=== PATIENT | female | born 1990 | race Caucasian/White ===

== ENCOUNTER 2018-10-15 00:58 | Emergency (ER) | payer SELFPAY ==
--- NOTE | 2018-10-15 01:14 | PDOC ---
History of Present Illness - General Stated Complaint: ABDOMINAL PAIN Time Seen by Provider: 10/15/18 01:08 History Source: Patient Exam Limitations: No Limitations - History of Present Illness Initial Comments: 10/15/18 01:12 28 YOF who is (LTCSx3) who p/w 10/10 non-radiating abdominal pain since 5 pm, onset while she was at rest and not exerting herself. She has never had pain like this before. Last BM was normal and was 2 hours ago, denies any f/c, diarrhea or constipation, LMP was 09/25/18, denies any chance of being . Notes nausea and headache, but denies any vomiting, SOB, vaginal bleeding or discharge. Did not take any medications for the pain. Past History - Past Medical History Allergies/Adverse Reactions: Allergies Allergy/AdvReac Type Severity Reaction Status Date / Time No Known Allergies Allergy Verified 10/15/18 01:46 Home Medications: Ambulatory Orders Doxycycline Hyclate 100 mg PO BID #28 capsule 10/15/18 Review of Systems - Review of Systems Able to Perform ROS?: Yes Comments:: 10/15/18 01:13 GEN: no fever, chills, malaise, generalized weakness, or weight change HEENT: no ear pain, sore throat, vision change, or eye pain CV: no chest pain, palpitations, lightheadedness, syncope, or edema RESP: no cough, wheezing, or SOB GI: abdominal pain, no nausea, vomiting, diarrhea, constipation, or white/black/ bloody stool : discharge, dysuria, labial mass/pain no hematuria, incontinence, retention, or bleeding MSK: no neck/back pain, muscle weakness/pain, or joint swelling/pain NEURO: no headache, seizure, vertigo, numbness, tingling, or focal weakness PSYCH: no substance use, no behavior change SKIN: no jaundice, no rash ROS otherwise negative except as noted in HPI *Physical Exam - Physical Exam Comments: 10/15/18 01:13 GENERAL: well-appearing, A/Ox4, no distress, answers questions appropriately HEENT: PERRLA, EOMI, moist mucous membranes NECK/BACK: no midline ttp, no spinal stepoff or deformity, no hematoma, full ROM , neck supple CARDIOVASCULAR: regular rate/rhythm, normal S1S2, no MGR, strong peripheral pulses, capillary refill <2 seconds, extremities wwp, no edema LUNGS/RESPIRATORY: no respiratory distress, CTAB GI/ABDOMEN: symmetric [id number], normoactive BS, soft, RLE ttp which is mild , no midline pulsatile masses : no CVA tenderness, pelvic exam with moderate sized left Bartholin cyst, moderate white discharge within vaginal vault, b/l adnexal ttp and CMT EXTREMITIES: no muscle atrophy, no acute deformity SKIN: warm and dry, no pallor, no jaundice, no rash, no bruising, no skin breakdown, no cuts, no lesions NEUROLOGICAL: GCS 15, CN II-XII grossly intact, 5/5 strength proximally and distally, no facial droop ED Treatment Course - LABORATORY CBC & Chemistry Diagram: 10/15/18 03:04 10/15/18 04:21 Medical Decision Making - Medical Decision Making 10/15/18 01:56 28YOF p/w abdominal pain, vaginal pain, and vaginal discharge. Vital Signs 10/15/18 10/15/18 01:05 01:15 Temperature 97.9 F Pulse Rate 66 Respiratory 16 Rate Blood Pressure 00/00 L 108/53 L O2 Sat by Pulse 98 Oximetry (%) Exam: As noted in Physical Exam section. DDX IBNLT: labial abscess, Bartholin cyst, hernia, PID, other vaginal infection , lymphadenopathy, PID, cervicitis, ovarian torsion, ovarian cyst, ectopic , TOA, endometritis, salpingitis, oophoritis, etc. W/U ordered: CBCD CMP Mg Phos Coags T&S UA UCx GC/Chlam/trich NAAT (cervical swab) GC culture, US TX ordered: IVF, Ofirmev 10/15/18 04:14 Type and screen and CMP hemolyzed and re-ordered. Laboratory Tests 10/15/18 10/15/18 10/15/18 03:04 03:04 03:04 WBC 13.8 H RBC 4.06 Hgb 12.8 Hct 38.4 MCV 94.7 MCH 31.5 MCHC 33.3 RDW 14.3 Plt Count 303 MPV 8.7 Absolute Neuts (auto) 10.8 H Neutrophils % 78.1 Lymphocytes % 15.4 Monocytes % 4.9 Eosinophils % 1.3 Basophils % 0.3 Nucleated RBC % 0 Sodium Cancelled Potassium Cancelled Chloride Cancelled Carbon Dioxide Cancelled Anion Gap Cancelled BUN Cancelled Creatinine Cancelled Creat Clearance w eGFR Cancelled Random Glucose Cancelled Calcium Cancelled Total Bilirubin Cancelled AST Cancelled ALT Cancelled Alkaline Phosphatase Cancelled Total Protein Cancelled Albumin Cancelled Serum , Qual Negative Blood Type Antibody Screen 10/15/18 10/15/18 10/15/18 03:04 04:21 04:21 WBC RBC Hgb Hct MCV MCH MCHC RDW Plt Count MPV Absolute Neuts (auto) Neutrophils % Lymphocytes % Monocytes % Eosinophils % Basophils % Nucleated RBC % Sodium 142 Potassium 3.7 Chloride 110 H Carbon Dioxide 25 Anion Gap 7 L BUN 7 Creatinine 0.5 L Creat Clearance w eGFR 145.87 Random Glucose 95 Calcium 7.5 L Total Bilirubin 0.2 AST 18 ALT 16 Alkaline Phosphatase 66 Total Protein 6.0 L Albumin 3.1 L Serum , Qual Blood Type Cancelled O POSITIVE Antibody Screen Cancelled Negative US: CT A/P is ordered and patient is pending this study. Vital Signs Temperature 98.3 F 10/15/18 05:52 Pulse Rate 63 10/15/18 05:52 Respiratory Rate 18 10/15/18 05:52 Blood Pressure 112/72 10/15/18 05:52 O2 Sat by Pulse Oximetry (%) 99 10/15/18 05:52 10/15/18 06:47 [facility] resident Dr. Tinoco pending CT. *DC/Admit/Observation/Transfer Diagnosis at time of Disposition: Abdominal pain Qualifiers: Abdominal location: unspecified location Qualified Code(s): R10.9 - Unspecified abdominal pain - Prescriptions Prescriptions: Doxycycline Hyclate 100 mg PO BID #28 capsule - Referrals Referrals: [facility] [place] [facility] at [place] [Provider Group] - Patient Instructions Additional Instructions: You were seen in the ER for abdominal pain and pelvic pain, with some discharge. We did an exam, laboratory work on your blood and urine, ultrasounds , and a CT scan, we found evidence of a possible infection, and we gave you your first doses of antibiotics here in the ER. Your pain improved with the medications we gave you here in the ER. After our assessment, we believe you are not having a medical emergency and you are safe to go home. Please take over -the-counter pain relievers like naproxen (aleve) or ibuprofen (motrin) or tylenol. 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 Call their clinic [facility], tell them you were seen in the ER, and tell them you need an appointment. Please come back to the ER at any time, 24 hours a day, for any new or worsening symptoms, like worsening pelvic pain, discharge, high fever, or other symptoms. If you are having severe or life threatening symptoms, or symptoms that make it unsafe to drive or have someone drive you, please call 911. - Post Discharge Activity
--- NOTE | 2018-10-15 01:35 | PDOC ---
Attending Attestation - HPI HPI: 10/15/18 01:41 The patient is a 28-year-old female, (delivered via ) presents to the emergency department with abdominal pain. The patient reports the pain presented at 5:00 pm, denies any trauma or injury that precipitated the pain. The patient states the pain is 10/10 in severity, nonradiating or nonpositional. The patient reports associated symptoms of nausea, headache, and dizziness. Denies prior similar symptoms. Last bowel movement was 2 hours ago, LMP was September 25. Denies hx of STD. Denies fever or chills. - Physicial Exam PE: 10/15/18 01:59 GENERAL: Afebril. Awake, alert, and fully oriented, in no acute distress HEAD: No signs of trauma EYES: PERRLA, EOMI, sclera anicteric, conjunctiva clear ENT: Auricles normal inspection, hearing grossly normal, nares patent, oropharynx clear without exudates. Moist mucosa NECK: Normal ROM, supple, no lymphadenopathy, JVD, or masses LUNGS: Breath sounds equal, clear to auscultation bilaterally. No wheezes, and no crackles HEART: Regular rate and rhythm, normal S1 and S2, no murmurs, rubs or gallops ABDOMEN: +RLQ rebound and guarding, periumbilical pain with rebound, no flank pain, Pelvic exam: +large 2.5 cm bartholin cyst on the left labia, nontender, no red or inflamed. Patient states its been present for 5 days. CMT, white discharge inside the vaginal vault, b/l adnexal tenderness. EXTREMITIES: Normal range of motion, no edema. No clubbing or cyanosis. No cords, erythema, or tenderness NEUROLOGICAL: Cranial nerves II through XII grossly intact. Normal speech. SKIN: Warm, Dry, normal turgor, no rashes or lesions noted. - Medical Decision Making 10/15/18 01:41 Documentation prepared by Alysha Sarah, acting as medical accounts receivable specialist for Darline Cordoba MD. <Alysha Sarah - Last Filed: 10/15/18 01:56> - Resident Resident Name: Karen Mclean - ED Attending Attestation I have performed the following: I have examined & evaluated the patient, The case was reviewed & discussed with the resident, I agree w/resident's findings & plan - Medical Decision Making 10/15/18 04:09 Patient Name: TRINI LANCASTER THIS IS A PRELIMINARY REPORT FROM [facility] DATE OF SERVICE: 2018-10-15 02:07:30 IMAGES: 10 EXAM: Ultrasound appendix HISTORY: 28-year-old female evaluate appendix COMPARISON: None. FINDINGS: Appendix is not identified. IMPRESSION: Appendix is not identified. Cannot exclude acute appendicitis 10/15/18 04:10 Patient Name: TRINI LANCASTER THIS IS A PRELIMINARY REPORT FROM [facility] DATE OF SERVICE: 2018-10-15 02:13:39 IMAGES: 73 EXAM: Ultrasound pelvis transabdominal and ultrasound pelvis transvaginal and ultrasound color duplex HISTORY: 28-year-old female lower abdominal pain evaluate ovaries COMPARISON: None. FINDINGS: Nabothian cysts noted in the cervix. The uterus measures 9.2 x 4.5 x 7.3 cm. Heterogeneous echogenicity in the uterine myometrium. The endometrium is normal in thickness and measures 1 mm. The right ovary measures 3 x 1.5 x 2.6 cm. There are no right ovarian masses. The left ovary measures 4.2 x 3.3 x 2.8 cm. Left ovary 3.3 x 2.7 x 2.3 cm cystic process. Small amount free fluid in the pelvis. COLOR DUPLEX: There is satisfactory perfusion to both the left and right ovary with normal appearing arterial and venous spectral waveforms. IMPRESSION: No evidence of ovarian torsion. Left ovary 3.3 x 2.7 x 2.3 cm cystic process. Small amount free fluid in the pelvis. 10/15/18 04:11 Patient Name: TRINI LANCASTER THIS IS A PRELIMINARY REPORT FROM [facility] DATE OF SERVICE: 2018-10-15 01:52:30 IMAGES: 48 EXAM: Ultrasound abdomen right upper quadrant HISTORY: 28-year-old female epigastric pain evaluate for gallbladder disease COMPARISON: None. FINDINGS: No cholelithiasis or cholecystitis. Common bile duct measures 2 mm. Liver appears unremarkable. Pancreas obscured by bowel gas. No right kidney nephrolithiasis or hydronephrosis. Aorta is patent. Intervertebral vena cava is patent. Main portal vein is patent. IMPRESSION: No cholelithiasis or cholecystitis. Limited exam with nonvisualization of the pancreas due to overlying bowel gas. 10/15/18 05:00 Pt will be treated for PID with ceftriaxone IVPB; doxy 100mg PO Pt signed out to the day team to get a CT scan abd/pelvis to make sure that pt doesn't have a concurrent appy, given that she has RLQ guarding and reboundas well as an elevated WBC count <Darline Cordoba - Last Filed: 10/15/18 21:13>
[2018-10-15] MEDS ORDERED: ACETAMINOPHEN 1000 MG/100 ML VIAL (NON FORMULARY) IVPB ONE (01:59)
[2018-10-15] MEDS ORDERED: SODIUM CHLORIDE 0.9% 500 ML INFUS.BAG IV ONE ×2 (01:59→05:50)
[2018-10-15] MEDS ORDERED: ACETAMINOPHEN INJECTION 100 ML IVPB ONE (02:16)
[2018-10-15 02:24] VITALS: BMI 31.5
[2018-10-15 03:17] LABS: BASO % 0.3 % (0-2.0); EOS % 1.3 % (0-4.5); HEMATOCRIT 38.4 % (32.4-45.2); HEMOGLOBIN 12.8 GM/dL (10.7-15.3); LYMPH % 15.4 % (8-40); MCH 31.5 pg (25.7-33.7); MCHC 33.3 g/dl (32.0-36.0); MEAN CELL VOLUME 94.7 fl (80-96); MEAN PLT VOLUME 8.7 fl (7.5-11.1); MONO % 4.9 % (3.8-10.2); NEUT % 78.1 % (42.8-82.8); PLATELET COUNT 303 K/MM3 (134-434); RBC 4.06 M/mm3 (3.60-5.2); RDW 14.3 % (11.6-15.6); WHITE BLOOD COUNT 13.8 K/mm3 (4.0-10.0)
[2018-10-15] MEDS ORDERED: CEFTRIAXONE 1,000 MG in DEXTROSE 5%-WATER - 50 ML IVPB ONE (04:09)
[2018-10-15] MEDS ORDERED: CEFTRIAXONE 1 GM/50 ML BAG ONE (04:19)
[2018-10-15 04:52] LABS: ALBUMIN 3.1 g/dl (3.4-5.0); ALK PHOS 66 U/L (45-117); ANION GAP 7 MMOL/L (8-16); BILIRUBIN,TOTAL 0.2 mg/dL (0.2-1); BLOOD UREA NITROGEN 7 mg/dL (7-18); CALCIUM 7.5 mg/dL (8.5-10.1); CHLORIDE 110 mmol/L (98-107); CO2 25 mmol/L (21-32); CREATININE 0.5 mg/dL (0.55-1.3); GLUCOSE,RANDOM 95 mg/dL (74-106); POTASSIUM 3.7 mmol/L (3.5-5.1); SGOT/AST 18 U/L (15-37); SGPT/ALT 16 U/L (13-61); SODIUM 142 mmol/L (136-145)
[2018-10-15] MEDS ORDERED: DOXYCYCLINE HYCLATE 100 MG CAPSULE PO ONE (05:01)
[2018-10-15] MEDS ORDERED: DOXYCYCLINE HYCLATE 100 MG VIAL ONE (05:40)
[2018-10-15 05:54] VITALS: TEMP 98.3
--- NOTE | 2018-10-15 10:03 | PDOC ---
*Physical Exam - Vital Signs Last Vital Signs Temp Pulse Resp BP Pulse Ox 98.3 F 75 18 115/80 99 10/15/18 08:55 10/15/18 08:55 10/15/18 08:55 10/15/18 08:55 10/15/18 08:55 ED Treatment Course - LABORATORY CBC & Chemistry Diagram: 10/15/18 03:04 10/15/18 04:21 - ADDITIONAL ORDERS Additional order review: Laboratory Results 10/15/18 10/15/18 10/15/18 04:21 04:21 03:04 Sodium 142 Potassium 3.7 Chloride 110 H Carbon Dioxide 25 Anion Gap 7 L BUN 7 Creatinine 0.5 L Creat Clearance w eGFR 145.87 Random Glucose 95 Calcium 7.5 L Total Bilirubin 0.2 AST 18 ALT 16 Alkaline Phosphatase 66 Total Protein 6.0 L Albumin 3.1 L Serum , Qual Blood Type O POSITIVE Cancelled Antibody Screen Negative Cancelled 10/15/18 10/15/18 03:04 03:04 Sodium Cancelled Potassium Cancelled Chloride Cancelled Carbon Dioxide Cancelled Anion Gap Cancelled BUN Cancelled Creatinine Cancelled Creat Clearance w eGFR Cancelled Random Glucose Cancelled Calcium Cancelled Total Bilirubin Cancelled AST Cancelled ALT Cancelled Alkaline Phosphatase Cancelled Total Protein Cancelled Albumin Cancelled Serum , Qual Negative Blood Type Antibody Screen 10/15/18 03:04 RBC 4.06 MCV 94.7 MCHC 33.3 RDW 14.3 MPV 8.7 Neutrophils % 78.1 Lymphocytes % 15.4 Monocytes % 4.9 Eosinophils % 1.3 Basophils % 0.3 - Medications Given in the ED: ED Medications Discontinued Medications Generic Name Dose Route Start Last Admin Trade Name Lalito PRN Reason Stop Dose Admin Acetaminophen 1,000 mg 10/15/18 01:59 10/15/18 03:10 Ofirmev Injection - IVPB 10/15/18 02:00 1,000 mg ONCE ONE Administration Doxycycline Hyclate 100 mg 10/15/18 05:01 10/15/18 06:00 Vibramycin - PO 10/15/18 05:02 100 mg ONCE ONE Administration Ceftriaxone Sodium 1,000 mg/ 50 mls @ 100 mls/hr 10/15/18 04:09 10/15/18 04: 50 Dextrose IVPB 10/15/18 04:38 100 mls/hr ONCE ONE Administration Sodium Chloride 1,000 ml 10/15/18 01:59 10/15/18 03:10 Normal Saline - IV 10/15/18 02:00 1,000 ml ONCE ONE Administration Sodium Chloride 1,000 ml 10/15/18 05:50 10/15/18 06:00 Normal Saline - IV 10/15/18 05:51 1,000 ml ONCE ONE Administration *DC/Admit/Observation/Transfer Diagnosis at time of Disposition: Abdominal pain Qualifiers: Abdominal location: unspecified location Qualified Code(s): R10.9 - Unspecified abdominal pain Ovarian cyst Qualifiers: Laterality: left Qualified Code(s): N83.202 - Unspecified ovarian cyst, left side - Discharge Dispostion Disposition: HOME Condition at time of disposition: Stable Decision to Admit order: No - Prescriptions Prescriptions: Doxycycline Hyclate 100 mg PO BID #28 capsule - Referrals Referrals: [facility] [place] [facility] [place] [Provider Group] Zoila Moraes MD [Staff Physician] - - Patient Instructions Additional Instructions: You were seen in the ER for abdominal pain and pelvic pain, with some discharge. We did an exam, laboratory work on your blood and urine, ultrasounds , and a CT scan, we found evidence of a possible infection, and we gave you your first doses of antibiotics here in the ER. Your pain improved with the medications we gave you here in the ER. After our assessment, we believe you are not having a medical emergency and you are safe to go home. Please take over -the-counter pain relievers like naproxen (aleve) or ibuprofen (motrin) or tylenol. 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 Call their clinic [facility], tell them you were seen in the ER, and tell them you need an appointment. Please come back to the ER at any time, 24 hours a day, for any new or worsening symptoms, like worsening pelvic pain, discharge, high fever, or other symptoms. If you are having severe or life threatening symptoms, or symptoms that make it unsafe to drive or have someone drive you, please call 911. - Post Discharge Activity
[2018-10-15] MEDS ORDERED: LIDOCAINE HCL 1%, 10 MG/ML (20ML VIAL) ONE (10:08)
[2018-10-15] MEDS ORDERED: cefTRIAXone SODIUM 1 GM VIAL ONE (10:09)
[2018-10-15 10:17] VITALS: BP 127/80; PULSE 69
== END 2018-10-15 10:17 | disposition home or self-care (01) ==
LOC: JER 00:58
PROC: 3E03329 Introduction of Other Anti-infective into Peripheral Vein, Percutaneous Approach (ICD-10-PCS; principal; 2018-10-15)
PROC: 3E033NZ Introduction of Analgesics, Hypnotics, Sedatives into Peripheral Vein, Percutaneous Approach (ICD-10-PCS; 2018-10-15)
PROC: 3E02329 Introduction of Other Anti-infective into Muscle, Percutaneous Approach (ICD-10-PCS; 2018-10-15)
DX: N73.8 Other specified female pelvic inflammatory diseases (principal); N83.202 Unspecified ovarian cyst, left side
CPT/HCPCS: 36415; 74176-TC; 76705-TC; 76830-TC; 76856-TC; 80053; 84703; 85025; 86850; 86900; 86901; 87491; 87591; 87661; 99282-25; J0131